=== PATIENT | female | born 1970 | race Caucasian/White ===

== ENCOUNTER 2018-02-07 21:38 | Emergency (ER) | payer MEDICAID ==
[2018-02-07 21:44] VITALS: BP 151/102
--- NOTE | 2018-02-07 22:17 | EDPHY ---
H & P Stated Complaint: "Eye floater", Possibly R eye, denies foreign object Time Seen by Provider: 02/07/18 22:04 HPI/ROS: CHIEF COMPLAINT: Floater HISTORY OF PRESENT ILLNESS: The patient is a 47-year-old female who comes to the emergency department complaining of a dark floater in her right eye. She 1st noticed it yesterday. No pain. No discharge. No trauma. No headache. No vision changes. Her vision is 20/20 in that eye and 20/40 in her other eye. 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 No foreign body sensation. She does have a history of hypertension, no diabetes REVIEW OF SYSTEMS: Constitutional: denies: chills, fever, recent illness, recent injury EENTM: See HPI Respiratory: denies: cough, shortness of breath Cardiac: denies: chest pain, irregular heart rate, lightheadedness, palpitations Gastrointestinal/Abdominal: denies: abdominal pain, diarrhea, nausea, vomiting, blood streaked stools Genitourinary: denies: dysuria, frequency, hematuria, pain Musculoskeletal: denies: joint pain, muscle pain Skin: denies: lesions, rash, jaundice, bruising Neurological: denies: headache, numbness, paresthesia, tingling, dizziness, weakness Hematologic/Lymphatic: denies: blood clots, easy bleeding, easy bruising Immunologic/allergic: denies: HIV/AIDS, transplant EXAM: GENERAL: Well-appearing, well-nourished and in no acute distress. HEAD: Atraumatic, normocephalic. EYES: Pupils equal round and reactive to light, extraocular movements intact, sclera anicteric, conjunctiva are normal. Normal retinal exam seen on panel down neck. Small floaters seen in right eye on ultrasound consistent with small hemorrhage. Normal visual acuity 20/20 in right eye. Casey-Pen measurements 14 and 12 in right and left eye. ENT: TMs normal, nares patent, oropharynx clear without exudates. Moist mucous membranes. NECK: Normal range of motion, supple without lymphadenopathy or JVD. LUNGS: Breath sounds clear to auscultation bilaterally and equal. No wheezes rales or rhonchi. HEART: Regular rate and rhythm without murmurs, rubs or gallops. ABDOMEN: Soft, nontender, normoactive bowel sounds. No guarding, no rebound. No masses appreciated. BACK: No CVA tenderness, no spinal tenderness, step-offs or deformities EXTREMITIES: Normal range of motion, no pitting or edema. No clubbing or cyanosis. NEUROLOGICAL: Cranial nerves II through XII grossly intact. Normal speech, normal gait. 5/5 strength, normal movement in all extremities, normal sensation PSYCH: Normal mood, normal affect. SKIN: Warm, dry, normal turgor, no visible rashes or lesions. Source: Patient Exam Limitations: No limitations - Personal History LMP (Females 10-55): Post Menopausal Current Tetanus Diphtheria and Acellular Pertussis (TDAP): Yes Tetanus Vaccine Date: 2016 - Medical/Surgical History Hx Asthma: No Hx Chronic Respiratory Disease: No Hx Diabetes: No Hx Cardiac Disease: No Hx Renal Disease: No Hx Cirrhosis: No Hx Alcoholism: No Hx HIV/AIDS: No Hx Splenectomy or Spleen Trauma: No Other PMH: PSH: nodules removed from thyroid;. PMH: hashimotos; - Family History Significant Family History: No pertinent family hx - Social History Smoking Status: Former smoker Alcohol Use: Sober Drug Use: None Constitutional: Initial Vital Signs Temperature (C) 36.8 C 02/07/18 21:40 Heart Rate 93 02/07/18 21:40 Respiratory Rate 19 02/07/18 21:40 Blood Pressure 151/102 H 02/07/18 21:40 O2 Sat (%) 96 02/07/18 21:40 O2 Delivery Mode Room Air Allergies/Adverse Reactions: Sulfa (Sulfonamide Antibiotics) Allergy (Verified 02/07/18 21:44) Home Medications: Medication Instructions Recorded ALPRAZolam [Xanax 0.5 MG (*)] 0.5 mg PO DAILY 06/03/15 Atomoxetine HCl [Strattera] 80 mg PO DAILY 06/03/15 Venlafaxine Xr [Effexor Xr 75MG 225 mg PO DAILY 06/03/15 (*)] levOFLOXACIN [levAQUIN] 750 mg PO DAILY #5 tab 06/04/15 Medical Decision Making ED Course/Re-evaluation: We discussed the patient's exam findings. Her symptoms are consistent with a which was detachment. I will have her follow up with Dr. Ortez on Friday or Friday who agrees with this plan. She declines further workup or testing. Differential Diagnosis: Partial list of the Differential diagnosis considered include but were not limited to; retinal detachment, vitreous detachment, migraine and although unlikely based on the history and physical exam, I also considered trauma, glaucoma, seizure. I discussed these differential diagnoses and the plan with the patient as well as the usual and expected course. The patient understands that the diagnosis is provisional and that in medicine we are not always correct and that further workup is often warranted. Usual and customary warnings were given. All of the patient's questions were answered. The patient was instructed to return to the emergency department should the symptoms at all worsen or return, otherwise to followup with the physician as we discussed. Departure - Departure Disposition: Home, Routine, Self-Care Clinical Impression: Right vitreal detachment Condition: Fair Instructions: Surgery for Retinal Detachment (DC) Referrals: NONE *PRIMARY CARE P,. [Primary Care Provider] - As per Instructions Ko Ortez MD [Medical Doctor] - 2-3 days, call for appt.
== END 2018-02-07 22:25 | disposition home or self-care (01) ==
DX: H43.811 Vitreous degeneration, right eye (principal); Z87.891 Personal history of nicotine dependence